=== PATIENT | female | born 1995 | race Caucasian/White ===

== ENCOUNTER → 2016-09-02 | Outpatient (CLI) | payer BC ==
--- NOTE | ~2016-09-02 | MR98 ---
[facility] A Service of [facility] RADIOLOGY TEXT RESULTS PATIENT: ELTON RAMAN LOCATION: [facility] : [birth year] UNIT #: [id number] AGE: [address]: Jose L Farfan MD SEX: F ORDER DR: [id number] [facility] [address] [place], [place] [address] [id number] O MR#: [id number] Acc #: [id number] NAME: ELTON RAMAN : 1995 SEX: F STUDY DATE/TIME: 09/02/2016 14:02 UNIT: [facility] ROOM: STUDY DESCRIPTION: MR Knee Arthrogram Rt Attending Physician: Olu Farfan M.D. Ordering Physician: Olu Farfan M.D. Primary Care Physician: Tosha Merrill M.D. MRI CENTER REPORT This report is preliminary unless electronic signature is present. 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 Constant medial knee pain. History of meniscal repair 06/10/2015 and ACL reconstruction 02/10/2011. COMPARISON MRI of the right knee from High Field and Open MR, 04/21/2016. FINDINGS Routine MR arthrogram was performed of the right knee utilizing a high field magnet and dedicated protocol. The examination demonstrates postoperative changes from prior ACL reconstruction with an intact graft. Femoral and tibial tunnels appear in expected position. A moderate amount of susceptibility artifact noted about the tibial tunnel along the anterior aspect of the knee. No focal marrow edema. Contrast distends the knee joint. No visible loose body. In the medial compartment there is abnormal imbibition or tracking of contrast posterior to the posterior horn of the medial meniscus or along the periphery of the meniscus extending over at least 1.5 cm. This is felt to represent either meniscocapsular separation or a peripheral vertical longitudinal tear extending to both the tibial and femoral surfaces. I tend to favor meniscal capsular separation given the appearance of the meniscus relative to the joint capsule. No displaced meniscus seen. Medial compartment articular cartilage appears intact. In the lateral compartment the meniscus and articular cartilage appears intact. Patellar and trochlear cartilage are unremarkable. ACL graft appears intact. Posterior cruciate ligament appears intact. [facility]. [facility] A Service of [facility] RADIOLOGY TEXT RESULTS PATIENT: ELTON RAMAN LOCATION: [facility] : [birth year] UNIT #: [id number] AGE: [address]: Jose L Farfan MD SEX: F ORDER DR: The medial collateral ligament and lateral collateral ligament complex appears normal. The extensor mechanism unremarkable. IMPRESSION 1. Abnormal tracking of contrast posterior to the posterior horn of the medial meniscus between the capsule and the meniscus. Findings highly concerning for meniscal capsular separation. Please note this is typically an arthroscopic diagnosis however the MR findings are strongly suggestive of a posterior horn meniscal capsular separation. Less likely this could represent a peripheral vertical tear but there does not appear to be meniscus posterior to the fluid and therefore I favor that this represents meniscal capsular separation. No displacement of the posterior horn. 2. Status post ACL reconstruction with an intact graft. Dictated by... Florentino Duarte M.D. THIS IS AN ELECTRONICALLY VERIFIED REPORT Florentino Duarte M.D. at 09/04/2016 1:58 PM Jaden TD: 09/03/2016 08:52 JOB #: [id number] MRI CENTER REPORT Page 1 of 1 COPY
--- NOTE | ~2016-09-02 | XA43 ---
[facility] A Service of [facility] & [facility] RADIOLOGY TEXT RESULTS PATIENT: ELTON RAMAN LOCATION: [facility] : [birth year] UNIT #: [id number] AGE: [address]: Jose L Farfan MD SEX: F ORDER DR: [id number] [facility] [address] [place], [place] [address] [id number] O MR#: [id number] Acc #: [id number] NAME: ELTON RAMAN : 1995 SEX: F STUDY DATE/TIME: 09/02/2016 13:38 UNIT: [facility] ROOM: STUDY DESCRIPTION: XA Arthrogram Knee Rt Attending Physician: Olu Farfan M.D. Ordering Physician: Olu Farfan M.D. Primary Care Physician: Tosha Merrill M.D. MEDICAL IMAGING REPORT This report is preliminary unless electronic signature is present EXAM Right knee arthrogram 09/02/2016 HISTORY Right knee injured playing basketball, chronic injury with history of prior meniscal and ACL tears and repair. PROCEDURE the procedure, attendant risks and options were discussed with the patient. She understands and wished to procedure. She was placed in the supine position. The lateral aspect of the right knee was subsequently prepped and draped and 22-gauge needle inserted under local anesthesia. Approximately 15 mL of contrast media with 0.1 mL of gadolinium was injected into the joint. Needle was removed, hemostasis achieved. Spot radiographs were obtained documenting intraarticular injection. CONCLUSION Successful intraarticular injection of the patient's right knee for MR arthrography. Please see that dictation separately. Total fluoroscopy time 0.6 minutes. Total exposure 1 mGy. Air kerma standard. Dictated by... Sloan Palacios M.D. THIS IS AN ELECTRONICALLY VERIFIED REPORT Sloan Palacios M.D. at 09/02/2016 5:04 PM Saadia TD: 09/02/2016 16:53 JOB #: [id number] MEDICAL IMAGING REPORT Page 1 of 1 COPY
== END | disposition home or self-care (01) ==
LOC: CIVR 12:35
DX: M25.561 Pain in right knee (principal); R93.8 Abnormal findings on diagnostic imaging of other specified body structures; Z98.890 Other specified postprocedural states
CPT/HCPCS: 73580; 73722; 77002; A9577; Q9967